=== PATIENT | male | born 1935 | race Caucasian/White ===

== ENCOUNTER 2019-12-08 13:21 | Outpatient (CLI) | payer MEDICARE, OTHER, SELFPAY ==
--- NOTE | 2019-12-08 13:42 | XR_ITS ---
WS: [id number] PROCEDURE: XR chest 2V* [id number] CLINICAL INFORMATION: COPD, CAD COMPARISON: November 05, 2014 FINDINGS: Heart: Normal cardiac silhouette. Lungs: Moderate chronic emphysematous changes. No acute pulmonary infiltrates. No consolidation pleur al fluid. Bones: Mild anterior wedging in the upper thoracic spine. XR/XR chest 2V* [id number] IMPRESSION: Moderate chronic emphysematous changes. No acute pulmonary infiltrates.
== END 2019-12-08 13:22 | disposition home or self-care (01) ==
LOC: RADWPI 13:27
PROVIDERS: Family Provider Family Medicine; PCP Family Medicine; Visit Provider Family Medicine
DX: J44.9 Chronic obstructive pulmonary disease, unspecified (principal); I25.10 Atherosclerotic heart disease of native coronary artery without angina pectoris
CPT/HCPCS: 71046

== ENCOUNTER → 2022-08-15 09:16 | Outpatient (BNVA) | payer MEDICARE, SELFPAY | PROVIDERS: Family Provider Family Medicine; PCP Family Medicine; Visit Provider Family Medicine | DX: Z00.00 Encounter for general adult medical examination without abnormal findings (principal); H53.9 Unspecified visual disturbance; R45.0 Nervousness; R42 Dizziness and giddiness; Z13.220 Encounter for screening for lipoid disorders; Z79.899 Other long term (current) drug therapy | CPT/HCPCS: 80053; 80061; 84443 ==